=== PATIENT | male | born 1960 | race Caucasian/White ===

== ENCOUNTER 2018-05-19 14:50 | Outpatient (CLI) | payer OTHER ==
[2018-05-19 16:33] LABS: Anion Gap 13 mmol/L (10-20); BUN (Urea Nitrogen) 32 mg/dL (8.4-25.7); Calc. Creatinine Clearance 0 mL/min (70-130); Calcium 9.3 mg/dL (7.8-10.44); Carbon Dioxide 30 mmol/L (22-29); Chloride 101 mmol/L (98-107); Estimated GFR-MDRD 40; Glucose 84 mg/dL (70-105); Potassium 3.2 mmol/L (3.5-5.1); Sodium 141 mmol/L (136-145)
--- NOTE | 2018-05-20 14:29 | EKG ---
Test Reason : Blood Pressure : / mmHG Vent. Rate : 077 BPM Atrial Rate : 077 BPM P-R Int : 194 ms QRS Dur : 098 ms QT Int : 394 ms P-R-T Axes : 043 022 007 degrees QTc Int : 445 ms Normal sinus rhythm Normal ECG No previous ECGs available Confirmed by WINIFRED GELLER, DR. Jett ([id number]) on 05/20/2018 2:29:17 PM Referred By: JESSIKA Confirmed By:DR. Johnie VITALE MD
== END 2018-05-19 14:51 | disposition home or self-care (01) ==
LOC: LABBT 14:50
PROVIDERS: ATTEND Neurological Surgery
DX: Z01.818 Encounter for other preprocedural examination (principal); M48.061 Spinal stenosis, lumbar region without neurogenic claudication
CPT/HCPCS: 80048; 93005; 93010

== ENCOUNTER 2018-05-26 06:39 | Day surgery (SDC) | payer OTHER ==
[2018-05-19 15:08] VITALS: BMI 47.1
--- NOTE | 2018-05-25 17:01 | HP ---
HISTORY OF PRESENT ILLNESS: Mr. Miranda is a very pleasant gentleman, reporting for evaluation of low back pain that he has had chronically, but over the last 6 months, new stocking like numbness in the bilateral lower extremities has started. He does not have any activity related change to his symptoms. His last MRI and most recent MRI at the [facility] both confirmed severe spinal stenosis at L4-L5. He reports history of injections with Dr. Escalera, which have all, but alleviated his pain for several months at a time. Unfortunately, more recently, those injections started to be less efficacious. He hopes to move forward with surgery if possible. PAST MEDICAL HISTORY: Significant for arthritis, seasonal allergies, hypertension, chronic pain syndrome. CURRENT MEDICATIONS: 1. Zonisamide. 2. Baclofen. 3. Amitriptyline. 4. Tramadol. 5. Celebrex. 6. Torsemide. 7. Bystolic. 8. 81 mg of aspirin. 9. Amlodipine. ALLERGIES: NO KNOWN DRUG ALLERGIES. PAST SURGICAL HISTORY: None. PHYSICAL EXAMINATION: GENERAL: The patient is alert and oriented x3. Gait is slowed and antalgic. EXTREMITIES: Lower extremity motor exam is normal. He does have dependent edema to the bilateral lower extremities. ASSESSMENT: Lumbar spinal stenosis. PLAN: Dr. Hagen met with the patient, reviewed imaging, advocated for an L4-L5 decompression. He explained to the patient the risks, benefits, and alternatives to the procedure. The patient expressed understanding and elected to move forward with surgery as discussed. I do believe that the patient is mentally competent and capable of making medical decisions for himself and we will move forward with surgery as planned. Job ID: [id number]
[2018-05-26] MEDS ORDERED: CEFAZOLIN 2 GM/50 ML BAG ONE ×2 (07:19→14:00)
[2018-05-26] MEDS ORDERED: Fentanyl 100 MCG/2 ML VIAL ONE (08:17)
[2018-05-26] MEDS ORDERED: Midazolam HCl 2 mg/2 ml Vial ONE (08:18)
[2018-05-26] MEDS ORDERED: Thrombin 5000 UNITS/5 ML VIAL ONE (08:50)
[2018-05-26] MEDS ORDERED: Bupivacaine HCl 0.5%/Epinephrine 1:200,000/PF 30 ml Vial ONE (08:50)
[2018-05-26] MEDS ORDERED: Promethazine HCl 25 MG/ML VIAL ONE (11:03)
[2018-05-26] MEDS ORDERED: Tamsulosin HCl 0.4 MG CAP ONE ×2 (11:20→13:08)
[2018-05-26] MEDS ORDERED: Acetaminophen/Codeine 30-300mg Tablet ONE (14:00)
--- NOTE | 2018-05-26 15:59 | OP ---
DATE OF PROCEDURE: 05/26/2018 BEHAVIOR MANAGEMENT SPECIALIST: Bay Hodge PA-C. INDICATION: Pain. DIAGNOSIS: Lumbar stenosis. PROCEDURE PERFORMED: L4-L5 lumbar decompression. ANESTHESIA: General. DESCRIPTION OF PROCEDURE: The patient was brought into the operating room and placed under general anesthesia. He was flipped from the supine to prone position on the operating room table. A linear incision was planned over the L4-L5 segment. After prepping and draping and after preoperative pause, the incision was created. The soft tissues were swept away from midline. A self-retaining retractor was placed in the wound for optimal exposure. The patient was morbidly obese requiring deep retractors and extensive operative time; therefore, a surgical Modifier 22 will be applied. After identifying the appropriate levels with C-arm fluoroscopy, an Adson rongeur, a high-speed cutting drill bit, as well as 2, 3, and 4-mm Kerrison were used to perform a laminectomy at the L4-L5 segment. After decompressing the segment, the wound was irrigated. Hemostasis was maintained throughout. The wound was then closed in anatomic layers and a pressure dressing was applied. There were no known procedural complications. Job ID: [id number]
[2018-05-26] MEDS ORDERED: Glycopyrrolate 0.2 MG/ML 5 ML SYRINGE ONE (16:57)
[2018-05-26] MEDS ORDERED: PHENYLEPHRINE-NS 100 MCG/ML 10 ML SYRINGE ONE (16:57)
[2018-05-26] MEDS ORDERED: PROPOFOL 200 MG/20 ML VIAL ONE (16:57)
[2018-05-26] MEDS ORDERED: Succinylcholine Chloride 20 MG/ML 10 ml SYRINGE FS ONE (16:57)
[2018-05-26] MEDS ORDERED: Dexamethasone 20 MG/5 ML VIAL ONE (16:57)
[2018-05-26] MEDS ORDERED: ePHEDrine/0.9% NaCl/PF SYRINGE 50 mg/10 ml ONE (16:57)
[2018-05-26] MEDS ORDERED: Ondansetron PF 4 MG/2 ML Vial ONE (16:57)
[2018-05-26] MEDS ORDERED: Ketorolac Tromethamine 30 MG/ML VIAL ONE (16:57)
[2018-05-26] MEDS ORDERED: Lidocaine 1% PF 5 ML VIAL ONE (16:57)
== END 2018-05-26 15:00 | disposition home or self-care (01) ==
LOC: SDC 06:39
PROVIDERS: ATTEND Neurological Surgery
PROC: 00NY0ZZ Release Lumbar Spinal Cord, Open Approach (ICD-10-PCS; principal; 2018-05-26)
DX: M48.061 Spinal stenosis, lumbar region without neurogenic claudication (principal); M19.90 Unspecified osteoarthritis, unspecified site; I10 Essential (primary) hypertension; G89.4 Chronic pain syndrome; J30.2 Other seasonal allergic rhinitis; E66.01 Morbid (severe) obesity due to excess calories; Z68.42 Body mass index [BMI] 45.0-49.9, adult; Z79.82 Long term (current) use of aspirin; Z79.899 Other long term (current) drug therapy; Z88.5 Allergy status to narcotic agent; Z88.8 Allergy status to other drugs, medicaments and biological substances
CPT/HCPCS: 76001; 96374; J0670; J1100; J1885; J2001; J2250; J2405; J2550; J2704; J3010